=== PATIENT | female | born 1980 | race Caucasian/White ===

== ENCOUNTER 2022-03-26 11:44 | Emergency (ER) | payer SELFPAY ==
[~2022-03-26] VITALS: Ht 162.5 cm; Wt 70.3 kg
[~2022-03-26 11:44] MED LIST: BACTRIM DS 8001 TA1 PO; HYDROCODONE BIT1 T11 PO; IMITREX100 MG PO; MOTRIN600 MG PO; PYRIDIUM200 MG PO; ZANTAC150 MG PO; ZOLOFT100 MG PO; Zofran4 MG PO
[2022-03-26 13:14] LABS: BILIRUBIN Negative (Negative); BLOOD Negative (Negative); CLARITY Clear (Clear); COLOR Yellow (Yellow); GLUCOSE Negative (Negative); KETONE Negative (Negative); LEUKO ESTERASE Negative (Negative); NITRITE Negative (Negative); PH 5.5 (4.5-8.0); SPECIFIC GRAVITY <= 1.005 (1.001-1.030); UROBILINOGEN 0.2 E.U./dl (0.0-1.0)
[2022-03-26 13:20] LABS: BASO # 0.1 10*3/uL (0.0-0.1); BASO % 0.7 % (0.0-1.0); EOS # 0.1 10*3/uL (0.0-0.4); EOS % 1.2 % (1.0-4.0); HEMATOCRIT 42.1 % (37.0-47.0); LYMPH # 3.4 10*3/uL (1.3-4.4); LYMPH % 28.1 % (27.0-41.0); MEAN CORPUSCULAR HGB 30.9 pg (27.0-31.0); MEAN CORPUSCULAR HGB CONC 34.7 g/dl (33.0-37.0); MEAN PLATELET VOLUME 10.1 fl (9.6-12.3); MONO # 0.7 10*3/uL (0.1-1.0); MONO % 5.6 % (3.0-9.0); NEUT # 7.7 10*3/uL (2.3-7.9); NEUT % 64.2 % (47.0-73.0); PLATELET COUNT AUTOMATED 236 10*3/uL (130-400); RED BLOOD COUNT 4.73 10*6/uL (4.10-5.10); RED CELL DISTRI WIDTH 12.4 % (0-14.5); WHITE BLOOD COUNT 12.1 10*3/uL (4.8-10.8)
[2022-03-26 13:36] LABS: BACTERIA 3+; EPITHELIAL CELLS 21-30
[2022-03-26 13:47] LABS: ALKALINE PHOSPHATASE 85 U/L (45-117); BUN 11 mg/dl (7-24); CHLORIDE 111 mmol/L (98-107); CREATININE 0.54 mg/dL (0.55-1.02); POTASSIUM 4.1 mmol/L (3.5-5.1); SGOT/AST 12 IU/L (3-35); SGPT/ALT 20 U/L (12-78); SODIUM 143 mmol/L (136-145); TOTAL PROTEIN 6.9 gm/dL (6.4-8.2)
== END 2022-03-26 17:02 | disposition home or self-care (01) ==
LOC: ED 11:44
PROVIDERS: Emergency Medicine; Physician Assistant
DX: R10.9 Unspecified abdominal pain (principal); Z98.51 Tubal ligation status; Z87.442 Personal history of urinary calculi; Z88.5 Allergy status to narcotic agent; Z88.8 Allergy status to other drugs, medicaments and biological substances; Z88.1 Allergy status to other antibiotic agents

== ENCOUNTER 2022-05-04 10:22 | Emergency (ER) | payer SELFPAY ==
[~2022-05-04] VITALS: Ht 167.6 cm; Wt 72.6 kg
[2022-05-04] MEDS ORDERED: AMOXICILLIN875 MG PO (10:44)
== END 2022-05-04 11:03 | disposition home or self-care (01) ==
LOC: ED 10:22
DX: K08.89 Other specified disorders of teeth and supporting structures (principal); Z88.8 Allergy status to other drugs, medicaments and biological substances; Z88.1 Allergy status to other antibiotic agents; Z90.89 Acquired absence of other organs; Z98.51 Tubal ligation status; Z90.49 Acquired absence of other specified parts of digestive tract

== ENCOUNTER 2022-08-06 14:40 | Emergency (ER) | payer SELFPAY ==
[~2022-08-06] VITALS: Ht 162.5 cm; Wt 68.0 kg
[~2022-08-06 14:40] MED LIST changes: +AMOXICILLIN875 MG PO
[2022-08-06] MEDS ORDERED: CLARITIN10 MG PO (16:29)
[2022-08-06] MEDS ORDERED: AMOX-CLAV 875-1 EACH PO (16:29)
== END 2022-08-06 16:44 | disposition home or self-care (01) ==
LOC: ED 14:40
DX: J30.9 Allergic rhinitis, unspecified (principal); J01.10 Acute frontal sinusitis, unspecified; Z88.5 Allergy status to narcotic agent; Z88.8 Allergy status to other drugs, medicaments and biological substances

== ENCOUNTER 2022-09-16 11:32 | Emergency (ER) | payer SELFPAY ==
[~2022-09-16] VITALS: Wt 68.0 kg
[~2022-09-16 11:32] MED LIST changes: +AMOX-CLAV 875-1 EACH PO; +CLARITIN10 MG PO
[2022-09-16] MEDS ORDERED: AMOXICILLIN500 M2 PO (11:59)
== END 2022-09-16 12:30 | disposition home or self-care (01) ==
LOC: ED 11:32
DX: H01.001 Unspecified blepharitis right upper eyelid (principal); K08.89 Other specified disorders of teeth and supporting structures; Z88.5 Allergy status to narcotic agent; Z88.2 Allergy status to sulfonamides; Z91.018 Allergy to other foods; Z98.51 Tubal ligation status; Z90.89 Acquired absence of other organs; F10.90 Alcohol use, unspecified, uncomplicated

== ENCOUNTER 2022-10-20 07:14 | Emergency (ER) | payer SELFPAY ==
[~2022-10-20] VITALS: Ht 162.5 cm; Wt 72.6 kg
[~2022-10-20 07:14] MED LIST changes: +AMOXICILLIN500 M2 PO
[2022-10-20] MEDS ORDERED: AMOX-CLAV 875-1 EACH PO (07:41)
== END 2022-10-20 07:46 | disposition home or self-care (01) ==
LOC: ED 07:14
DX: J32.9 Chronic sinusitis, unspecified (principal); H66.91 Otitis media, unspecified, right ear; F32.A Depression, unspecified; F41.9 Anxiety disorder, unspecified; Z88.8 Allergy status to other drugs, medicaments and biological substances; Z88.2 Allergy status to sulfonamides; Z91.018 Allergy to other foods; Z87.442 Personal history of urinary calculi; Z98.51 Tubal ligation status; Z90.89 Acquired absence of other organs; Z98.890 Other specified postprocedural states